=== PATIENT | female | born 1990 | race Caucasian/White ===

== ENCOUNTER 2016-11-25 20:34 | Emergency (ER) | payer MEDICAID, OTHER ==
[~2016-11-25] VITALS: Ht 157.5 cm; Wt 61.0 kg
[~2016-11-25 20:34] MED LIST: PEN500 PO
[2016-11-25 20:36] VITALS: Ht 157.5 cm; Wt 61.0 kg
[2016-11-25] MEDS ORDERED: AMO500 PO (20:55)
[2016-11-25] MEDS ORDERED: CYCL5TAB PO (20:55)
[2016-11-25] MEDS ORDERED: TRAM50TA2 PO (20:55)
--- NOTE | 2016-11-25 21:22 | ERD ---
ER Documentation Chief Complaint Date/Time DATE: 11/25/16 TIME: 21:20 Chief Complaint sore throat x 2 days HPI 26-year-old female presents with sore throat 2 days, as well as left shoulder pain for 2 months. Patient states that she has frequent tonsil infections. There is no history of trouble swallowing, voice changes, drooling or fever, she denies cough. She also has achy pain in the left shoulder, and the trapezius, she states that is worse after work. She has tried taking ibuprofen as well as applying warm compresses. She denies any weakness, or trauma. ROS All systems reviewed and are negative except as per history of present illness. Medications Home Meds Active Scripts Amoxicillin* (Amoxicillin*) 500 Mg Cap, 500 MG PO TID for 10 Days, CAP Prov:CAMERON PENA PA-C 11/25/16 Tramadol HCl (Tramadol HCl) 50 Mg Tablet, 50 MG PO Q4 Y for PAIN, #20 TAB Prov:CAMERON PENA PA-C 11/25/16 Cyclobenzaprine Hcl* (Cyclobenzaprine Hcl*) 5 Mg Tablet, 5 MG PO Q8H Y for PAIN , #15 TAB Prov:CAMERON PENA PA-C 11/25/16 Penicillin V Potassium* (Penicillin V K*) 500 Mg Tab, 500 MG PO BID for 7 Days, TAB Prov:SYBIL ARMIJO 12/04/15 Allergies Allergies: Coded Allergies: No Known Allergies (Verified Allergy, Mild, 01/25/12) PMhx/Soc History of Surgery: No Anesthesia Reaction: No Hx Neurological Disorder: No Hx Respiratory Disorders: No Hx Cardiac Disorders: No Hx Psychiatric Problems: No Hx Miscellaneous Medical Probl: No Hx Alcohol Use: No Hx Substance Use: No Hx Tobacco Use: No Physical Exam Vitals Vital Signs Date Time Temp Pulse Resp B/P Pulse Ox O2 Delivery O2 Flow Rate FiO2 11/25/16 20:36 100.2 108 20 130/74 100 Physical Exam General: Well-developed, well-nourished. The patient appears in no acute distress. HEENT: Head is normocephalic, atraumatic. No scleral icterus. TMs are normal. Oropharynx has swollen tonsils, erythema, uvula midline. Tonsils are not kissing. Neck: Supple. Nontender. No masses, positive tender cervical lymphadenopathy. Lungs: Clear to auscultation. Normal air movement. Heart: Regular rate and rhythm. S1 and S2 are normal. No murmurs, gallops, or rubs. Abdomen: Nondistended. Musculoskeletal: There is tenderness over the left trapezius, radial, ulnar, median nerve intact. Fre[employer] Bro[employer] Agent strength 5 out of 5 bilaterally. No midline tenderness to cervical spine Neurologic: Alert and oriented 3. No focal deficits. Normal speech and gait. Skin: Normal turgor. No rash or lesions. Procedures/MDM 26-year-old female presents with acute pharyngitis as well as left trapezius pain. No evidence of neuropathy, neuropraxia, fracture, acute coronary syndrome , dissection. Patient has swelling of the tonsils and will be treated for presumed strep pharyngitis. She will be given tramadol since she has already been taking ibuprofen without much relief, also Flexeril. Departure Diagnosis: Primary Impression: Sore throat Additional Impression: Sprain of left shoulder Condition: Good Patient Instructions: When You Have a Sore Throat, Shoulder Sprain , Pharyngitis, Strep (Presumed) Additional Instructions: Call your primary care doctor TOMORROW for an appointment during the next 1-2 days.See the doctor sooner or return here if your condition worsens before your appointment time. CAMERON PENA PA-C Nov 25, 2016 21:22
== END 2016-11-25 20:52 | disposition home or self-care (01) ==
LOC: FTE 20:34 → E/R 20:52
DX: J02.9 Acute pharyngitis, unspecified (principal); S43.402A Unspecified sprain of left shoulder joint, initial encounter; X58.XXXA Exposure to other specified factors, initial encounter; Y92.9 Unspecified place or not applicable
CPT/HCPCS: 99284

== ENCOUNTER 2016-12-08 21:56 | Emergency (ER) | payer OTHER ==
[~2016-12-08] VITALS: Ht 160 cm; Wt 59.1 kg
[~2016-12-08 21:56] MED LIST changes: +AMO500 PO; +CYCL5TAB PO; +TRAM50TA2 PO
[2016-12-08 22:18] VITALS: Ht 160 cm; Wt 59.1 kg
--- NOTE | 2016-12-09 00:24 | ERD ---
ER Documentation Chief Complaint Date/Time DATE: 12/09/16 TIME: 00:[address] HAS [address] AND COUGH X 1.5 WEEKS, FINISHED ABX, GETTING WORSE PAIN 03/13 HPI 26-year-old female presents to the emergency room for throat pain for more than a week. Stated that she finished her amoxicillin antibiotic. She also complained of nonproductive cough for about 1.5 weeks. Denies headache, loss of consciousness, dizziness, blurry vision, changes in vision, photophobia, facial pain, ear pain, difficulty swallowing, neck pain, shoulder pain, chest pain, hemoptysis, abdominal pain, back pain, loss of appetite, nausea, vomiting, hematochezia, diarrhea, constipation, urinary symptoms, , the possibility of being , bladder and bowel incontinences, extremity weakness, extremity tenderness, numbness or tingling sensation, difficulty walking, recent travel, recent exposure to illness, fever , chills. Allergy: No known drug allergies. PMH: Denies. Family medical history: Denies. with 3 miscarriages. LMP: "I am on it right now." Medications: Surgery: 1. Works as a medical surgery nurse. Primary Social History: Denies smoking, use of alcohol, use of illegal drugs. ROS All systems reviewed and are negative except as per history of present illness. Medications Home Meds Active Scripts Prednisone* (Prednisone*) 20 Mg Tab, 40 MG PO DAILY for 4 Days, TAB Prov:PHYLLIS MATHIS 12/09/16 Albuterol Sulfate* (Proair HFA*) 8.5 Gm Hfa.aer.ad, 2 PUFF INH Q4, #1 INHALER Prov:PHYLLIS MATHIS 12/09/16 Azithromycin* (Zithromax*) 250 Mg Tablet, 250 MG PO .ZPACK DIRECTED, #6 TAB TAKE 500 MG (2 TABS) THE FIRST DAY THEN 250 MG (1 TAB) DAYS 2-5 Prov:PHYLLIS MATHIS 12/09/16 Amoxicillin* (Amoxicillin*) 500 Mg Cap, 500 MG PO TID for 10 Days, CAP Prov:CAMERON PENA PA-C 11/25/16 Tramadol HCl (Tramadol HCl) 50 Mg Tablet, 50 MG PO Q4 Y for PAIN, #20 TAB Prov:CAMERON PENA PA-C 11/25/16 Cyclobenzaprine Hcl* (Cyclobenzaprine Hcl*) 5 Mg Tablet, 5 MG PO Q8H Y for PAIN , #15 TAB Prov:CAMERON PENA PA-C 11/25/16 Penicillin V Potassium* (Penicillin V K*) 500 Mg Tab, 500 MG PO BID for 7 Days, TAB Prov:SYBIL ARMIJO 12/04/15 Discontinued Scripts Azithromycin* (Zithromax*) 250 Mg Tablet, 250 MG PO .SairaPACK DIRECTED, #6 TAB TAKE 500 MG (2 TABS) THE FIRST DAY THEN 250 MG (1 TAB) DAYS 2-5 Prov:PHYLLIS MATHIS Tripp 12/09/16 Allergies Allergies: Coded Allergies: No Known Allergies (Verified Allergy, Mild, 01/25/12) PMhx/Soc History of Surgery: No Anesthesia Reaction: No Hx Neurological Disorder: No Hx Respiratory Disorders: No Hx Cardiac Disorders: No Hx Psychiatric Problems: No Hx Miscellaneous Medical Probl: No Hx Alcohol Use: No Hx Substance Use: No Hx Tobacco Use: No Smoking Status: Never smoker Physical Exam Vitals Vital Signs Date Time Temp Pulse Resp B/P Pulse Ox O2 Delivery O2 Flow Rate FiO2 12/09/16 01:25 77 20 100 21 12/08/16 22:18 98.6 100 18 118/84 100 Physical Exam CONSTITUTIONAL: Well-appearing; well-nourished; in no apparent distress. HEAD: Normocephalic; atraumatic. EYES: Conjunctiva clear, sclera non-icteric, EOM intact. PERRL Ears: Hearing intact. EACs clear, TMs non-bulging, non-inflamed, translucent & mobile, ossicles normal appearance, No obstructions, no erythema, no discharges Nose: No obstructions. No polyps. No external lesions. Mucosa non-inflamed. No external lesions, septum and turbinates normal. No rhinorrhea. No discharges. Frontal sinus is non-tender to palpation. Maxillary sinus is non-tender to palpation. MOUTH: Moist mucous membranes, no lesion, no obstructions, no vesicles, no thrush, patent airway Throat: Uvula in midline. Right tonsil is +2 with no erythema, no exudate. Left tonsil is +2 with no erythema, no exudate. Tolerating secretions well. Good gag reflex. Patent airway. Neck: Supple, without lesions, bruits, or adenopathy. No mass. Thyroid non- enlarged and non-tender to palpation. CHEST: Symmetrical chest. Respirations even and not labored. No retractions noted. CARDIOVASCULAR: Normal S1, S2. RRR. No murmurs, gallops. RESPIRATORY: Normal chest excursion with respiration; breath sounds clear and equal bilaterally; no wheezes, rhonchi, or rales. Breathing even and unlabored. Speaking in clear, full, and complete sentences w/ ease. ABDOMEN: Normal bowel sounds normal. Soft, round, non-distended, non-guarding, no tenderness, no rebound, no organomegaly, no masses, no pulsating abdominal mass. No hernia. No peritoneal signs. : No CVA tenderness. BACK: Symmetrical shoulder. Spine is midline without deformity, tenderness. No evidence of trauma or deformity. PELVIS: Stable pelvis. No evidence of trauma or deformity. MUSCULOSKELETAL: Normal gait and station. No misalignment, asymmetry, crepitation, defects, tenderness, masses, effusions, decreased range of motion, instability, atrophy or abnormal strength or tone in the head, neck, spine, ribs , pelvis or extremities. No calf tenderness. NEUROVASCULAR: Distal pulses are present. Pedal pulse are present, equal, and normal. Capillary refills are < 2 seconds. NEUROLOGIC: Alert and oriented x4. Speaks full and clear sentences. Cranial Nerves II-XII normal. Sensation to pain, touch, and proprioception normal. Grossly unremarkable. No neurologic deficits. Romberg test is negative. PSYCHOLOGICAL: The patients mood and manner are appropriate. No hallucinations , delusions. Not SI. Not HI. Has the capacity to decide for self SKIN: Normal for age and ethnicity; warm; dry; good turgor; no apparent lesions or exudates. No rashes, hives, discoloration. Intact. Results 24 hrs Current Medications Medications (Trade) Dose Ordered Sig/Lance Route PRN Reason Start Time Stop Time Status Last Admin Dose Admin Ceftriaxone Sodium (Rocephin) 1 gm ONCE ONCE IM 12/09/16 00:30 12/09/16 00:31 DC 12/09/16 01:29 Methylprednisolone Sodium Succinate (Solu-Medrol) 125 mg ONCE ONCE IM 12/09/16 00:30 12/09/16 00:31 DC 12/09/16 01:29 Albuterol (Proventil 0.083% (Neb)) 5 mg ONCE STAT HHN 12/09/16 00:42 12/09/16 00:43 DC 12/09/16 01:27 Procedures/MDM Examination: Please see physical examination. Disease process, medical treatment was explained to the patient and family member. They verbalized understanding and agreed with the diagnostic tests, medical treatment, and follow-up care. Treatment: Solu-Medrol IM. Ceftriaxone IM. Albuterol. Re-evaluation: Uvula in midline and nondisplaced. Tolerating secretions. No difficulty swallowing. Speaks full and clear sentences. Patent airway. Patient is alert oriented 4 no neurological deficits. Symmetrical chest. Respirations even and unlabored. Lung sounds are clear to auscultation. No retractions. Consultation: None. Differential diagnosis: Peritonsillar abscess versus strep throat versus strep pharyngitis versus tonsillitis. Medical decision makin-year-old female presents to the emergency room for throat pain for more than a week. Stated that she finished her amoxicillin antibiotic. She also complained of nonproductive cough for about 1.5 weeks. Patient's complaint, patient's history about her complaint, my physical findings , I consistent with final diagnosis of strep throat/pharyngitis, bronchitis Medications prescribed are the following: Azithromycin. Pro-air. Prednisone. Patient and family member are made aware of the side effects and adverse reactions of the medications prescribed. Instructed on when to seek emergent and medical attention in case allergic/anaphylactic reactions or severe side effects and or adverse reactions to medications. Patient and family member verbalized understanding. Patient instructed Instructed to follow-up with his PCP in 24-48 hours. Patient stated that she will see her primary care provider in the next 24 hours. Instructed to Call 911 for chest pain, shortness of breath. Advised to come back here in ED as soon as possible for severity of symptoms which includes but not limited to: any new symptoms; shortness of breath/difficulty of breathing; cardiovascular changes; severe gastrointestinal symptoms; signs and symptoms of bleeding and or infection; signs of compartment syndrome/neurovascular changes; neurological changes/deficits. Patient and family member verbalized understanding. Upon discharge, patient is alert and oriented x 4, speaks full and clear sentences, denies pain, has no neurological deficits, has no neurovascular deficits, difficulty of breathing. Breathing even and unlabored. Lung sounds are clear to auscultation. Not in distress. Appears comfortable. Ambulatory with steady gait. Appears satisfied with care provided here in ED. Departure Diagnosis: Primary Impression: Strep throat Additional Impression: Bronchitis Condition: Good Additional Instructions: Patient instructed Instructed to follow-up with his PCP in 24-48 hours. Patient stated that she will see her primary care provider in the next 24 hours. Instructed to Call 911 for chest pain, shortness of breath. Advised to come back here in ED as soon as possible for severity of symptoms which includes but not limited to: any new symptoms; shortness of breath/difficulty of breathing; cardiovascular changes; severe gastrointestinal symptoms; signs and symptoms of bleeding and or infection; signs of compartment syndrome/neurovascular changes; neurological changes/deficits. Patient and family member verbalized understanding. PHYLLIS MATHIS Dec 09, 2016 00:24
[2016-12-09] MEDS ORDERED: CEFTRIAXONE 1 GM INJ IM ONE (00:30)
[2016-12-09] MEDS ORDERED: METHYLPREDNISOLONE 125 MG INJ IM ONE (00:30)
[2016-12-09] MEDS ORDERED: ALBUTEROL 0.083% (NEB) 2.5 MG/3 ML AMP HHN STA (00:42)
[2016-12-09] MEDS ORDERED: AZIT250T94 PO ×2 (00:45→00:54)
[2016-12-09] MEDS ORDERED: ALBU8.5H3 INH (00:54)
[2016-12-09] MEDS ORDERED: PRED20TA PO (00:55)
[2016-12-09 02:18] VITALS: BP 131/72; PULSE 101; RESP 18; TEMP 98.4
== END 2016-12-09 02:20 | disposition home or self-care (01) ==
LOC: FTE 21:56
DX: J02.0 Streptococcal pharyngitis (principal); J20.9 Acute bronchitis, unspecified
CPT/HCPCS: 94664; 96372; J0696; J2930; Z7502; Z7610